=== PATIENT | male | born 1965 ===

== ENCOUNTER → 2019-07-19 | Outpatient (CLI) | payer OTHER ==
[~2019-07-19] MED LIST: ACET120S PR; AMLO10 PO; AMOCLA875 PO; LOSARTAN POTAS100 MG PO; NAPR550 PO; OXYACE5T PO; OXYCODONE/APAP PO; PROM25 PO; RXNAPNA550 PO
== END ==
LOC: LAB SHORT 07:27 → PLD 07:27
DX: L57.0 Actinic keratosis (principal)
CPT/HCPCS: 88305

== ENCOUNTER 2024-07-31 08:14 | Day surgery (SDC) | payer OTHER ==
[~2024-07-31] VITALS: Ht 190.5 cm; Wt 116.7 kg
[~2024-07-31 08:14] MED LIST changes: +GLIM2 PO; +Lactated Ringer's 1,000 ML IV SCH
[2024-07-31 09:09] VITALS: BP 155/96
--- NOTE | 2024-07-31 09:10 | NUR ---
Ambulatory in Day Surgery History, Chart, Medications and Allergies reviewed before start of procedure. Pre-Op teaching done. Pt verbalizes understanding. Patient States Post-Procedure ride home has been arranged.
[2024-07-31] MEDS ORDERED: propofoL 60 ML IV ONE (09:49)
--- NOTE | 2024-07-31 09:59 | NUR ---
07/31/24 0959 [place] MONITOR INTACT WITH CONTINUOUS PULSE OXIMETRY, CONTINUOUS END TITAL CO2, 3-LEAD EKG AND INTERMITTENT BLOOD PRESSURE. ANESTHESIA PER DR. VEGAS
[2024-07-31 10:30] VITALS: BP 129/89
[2024-07-31 10:40] VITALS: BP 130/89
--- NOTE | 2024-07-31 10:46 | NUR ---
D/C INSTRUCTIONS GIVEN TO PT & PT'S , UNDERSTANDING VERBALIZED. PT DENIES PAIN/NAUSEA, VSS, ON RA. PT STATES READINESS TO GO HOME. PT DRESSED W/ HELP FROM , STEADY GAIT NOTED. PT WHEELED TO MAIN ENTRANCE WHERE HE WILL BE DRIVEN HOME BY IN PRIVATE VEHICLE. PT HAS ALL BELONGINGS. NO VISIBLE SIGNS OF DISTRESS NOTED.
== END 2024-07-31 22:57 | disposition home or self-care (01) ==
LOC: ORSCMMR 08:14 → ORD 10:00 → ORSCMMR 22:57
PROVIDERS: Internal Medicine Gastroenterology
PROC: 0DBN8ZX Excision of Sigmoid Colon, Via Natural or Artificial Opening Endoscopic, Diagnostic (ICD-10-PCS; principal; 2024-07-31 10:00)
PROC: 0DBP8ZX Excision of Rectum, Via Natural or Artificial Opening Endoscopic, Diagnostic (ICD-10-PCS; principal; 2024-07-31 10:00)
DX: Z12.11 Encounter for screening for malignant neoplasm of colon (principal); K63.5 Polyp of colon; K62.1 Rectal polyp; Z86.0101 Personal history of adenomatous and serrated colon polyps; C61 Malignant neoplasm of prostate; G47.33 Obstructive sleep apnea (adult) (pediatric); I10 Essential (primary) hypertension; E11.9 Type 2 diabetes mellitus without complications; Z79.899 Other long term (current) drug therapy
CPT/HCPCS: 82947; 88305; J2704; J7120